=== PATIENT | female | born 2000 | race Caucasian/White ===

== ENCOUNTER 2022-07-24 01:12 | Emergency (ER) | payer SELFPAY ==
[~2022-07-24] VITALS: Ht 139.7 cm; Wt 54.0 kg
[2022-07-24] MEDS ORDERED: KETOROLAC 15MG/ML VIAL IV ONE (05:30)
[2022-07-24] MEDS ORDERED: METOCLOPRAMIDE HCL 10MG/2ML VIAL IV ONE (05:30)
[2022-07-24 05:48] VITALS: BP 115/65
== END 2022-07-24 08:17 | disposition home or self-care (01) ==
LOC: ER 01:12
DX: G43.909 Migraine, unspecified, not intractable, without status migrainosus (principal)
CPT/HCPCS: 81025; 96374; 96375; 99284; J1885; J2765; Z7610